=== PATIENT | male | born 1985 | race Caucasian/White ===

== ENCOUNTER 2016-08-03 21:49 | Emergency (ER) | payer BC, OTHER ==
[~2016-08-03] VITALS: Ht 167.6 cm; Wt 71.4 kg
[~2016-08-03 21:49] MED LIST: CEPH500C PO
[2016-08-03 21:51] VITALS: Ht 167.6 cm; Wt 71.4 kg
[2016-08-03] MEDS ORDERED: ACETAMINOPHEN 500 MG TAB PO STA (22:02)
[2016-08-03 22:46] VITALS: BP 102/67; PULSE 100; TEMP 37.6; O2SAT 97
[2016-08-04 02:02] LABS: INFLUENZA B PCR Neg for Influ B (NEG)
[2016-08-04 02:04] LABS: INFLUENZA A PCR POS for Influ A (NEG)
--- NOTE | 2016-08-04 02:36 | EMERGENCY ROOM VISIT NOTE ---
History First contact with patient: 21:54 Chief Complaint: FEVER Stated Complaint: FEVER History of Present Illness The patient is a 31 year old male who presents to the Emergency Room with complaints of fever, chills, occasional cough bodyaches and pains for the past day. Patient didn't receive the flu vaccine. Other people myself later currently sick. Patient works at [employer] and has been around other people that have been sick. Patient denies chest pain, dyspnea, neck status, sore throat, earache, abdominal pain, vomiting, diarrhea. He is tolerate by mouth fluids and food. He took Motrin 40 mg at 9 PM. Review of Systems See HPI for pertinent positives & negatives. A total of 10 systems reviewed and were otherwise negative. Past Medical/Surgical History None Social History Smoking Status: Never Smoker Smokeless Tobacco Use: No Drug Use: none Housing Status: lives with family Occupation Status: employed Current/Historical Medications No Active Prescriptions or Reported Meds Allergies Coded Allergies: Penicillins (Unverified Allergy, Unknown, UNKNOWN, 08/03/16) Physical Exam Vital Signs Date Time Temp Pulse Resp B/P Pulse Ox O2 Delivery O2 Flow Rate FiO2 08/03/16 22:46 37.6 100 16 102/67 97 08/03/16 21:51 37.9 118 16 135/80 94 Room Air Physical Exam VITALS: Vitals are noted on the nurse's note and reviewed by myself. Vital signs febrile tachycardic GENERAL: Pleasant male mildly ill-appearing, in no acute distress, nondiaphoretic, well-developed well-nourished. SKIN: The skin was without rashes, erythema, edema, or bruising. There is no tenting of the skin. Capillary reflex less than 2 seconds. HEAD: Normocephalic atraumatic. EARS: External auditory canals clear, tympanic membranes pearly daily without erythema or effusion bilaterally. EYES: Pupils equal round and reactive to light and accommodation. Conjunctivae without injection, sclerae without icterus. Extraocular movements intact. NOSE: Patent, turbinates without inflammation or discharge. No sinus tenderness. MOUTH: Mucous membranes mildly dry. Pharynx without erythema or exudate. Uvula midline. Airway patent. Tongue does not deviate. NECK: Supple without nuchal rigidity. No lymphadenopathy. No thyromegaly. Cervical spine is nontender. No JVD. No meningeal signs HEART: Regular rate and rhythm without murmurs gallops or rubs. LUNGS: Clear to auscultation bilaterally without wheezes, rales or rhonchi. No dullness to percussion. No retractions or accessory muscle use. ABDOMEN: Positive bowel sounds x 4. Normal tympanic percussion. Soft, nontender, without masses or organomegaly. Sy sign negative. No guarding or rebound tenderness. MUSCULOSKELETAL: No muscle atrophy, erythema, or edema noted. NEURO: Patient was alert and oriented to person place and time. Normal sensation to light and sharp touch. No focal neurological deficits. Medical Decision & Procedures Laboratory Results Test 08/03/16 21:55 Influenza Type A (RT-PCR) POS for Influ A (NEG) Influenza Type A Antigen Neg for Influ A (NEG) Influenza Type B Antigen Neg for Influ B (NEG) Influenza Type B (RT-PCR) Neg for Influ B (NEG) Medications Administered Medications (Trade) Dose Ordered Sig/Traci Route Start Time Stop Time Status Last Admin Dose Admin Acetaminophen (Tylenol Tab) 1,000 mg NOW STAT PO 08/03/16 22:02 08/03/16 22:04 DC 08/03/16 22:27 1,000 MG ED Course Prior records/ancillary studies reviewed. Triage Nursing notes reviewed. Additional history obtained from family The patient's history was concerning for fever. Differential diagnosis: Etiologies such as viral syndrome, otitis, pharyngitis, pneumonia, influenza, meningitis, urinary tract infection, sepsis, bacteremia, as well as others were entertained. Physical examination: Patient is alert, interactive and tolerating fluids ER treatment provided: Tylenol, Gatorade On reassessment the patient felt better. Diagnostics interpreted by me: The labs revealed + flu This appears to be consistent with influenza. Patient is neurovascularly and neurologically intact. No signs of meningitis. He was informed that he is highly contagious and to stay at home until he is 24 hours fever free. He was advised to wear his mask at home as he has young children at home. He was advised to rest, stay well hydrated and to take Tylenol and/or Motrin as needed for fever reduction. He was advised follow-up family care in a few days or here in the ER sooner for high fevers, lethargy, next of this, worsening signs or symptoms or as needed. By the evaluation outlined above emergent etiologies such as otitis, pharyngitis, pneumonia, meningitis, urinary tract infection, sepsis, bacteremia, as well as others were deemed relatively unlikely. The pt informed about the findings as listed above. All questions were answered and pleased with the treatment. Return instructions were outlined and the patient was discharged in stable condition. Referral: The patient was referred back to their primary care physician for follow-up in 2 to 3 days for a recheck of the current condition. Medical Decision As above Impression Primary Impression: Influenza A Additional Impression: Fever Departure Information Dispostion Home / Self-Care Condition GOOD Prescriptions No Active Prescriptions or Reported Meds Referrals Sahil Ledesma M.D. (PCP) Patient Instructions My [facility] Additional Instructions Acetaminophen(Tylenol) may be used for fever or pain. Use 1000mg every six hours as needed. Avoid using more than 3000mg in a 24 hour period. (AND/OR) Ibuprofen(Motrin, Advil) may be used for fever or pain. Use 600mg every six hours as needed. Take with food. Avoid using more than 2400mg in a 24 hour period. Do not use 2400mg per day for more than three consecutive days without physician direction. Prolonged inappropriate use can lead to stomach upset or ulcers. Afrin nasal spray: 2-3 sprays to each nostril twice daily as needed for congestion. Do not use for more than 3-4 days because it can lead to worsening rebound congestion. Pseudoephedrine(Sudaphed): 30-60mg every 6 hours as needed for nasal congestion. Do not take this with other stimulant products or supplements. Rest and drink plenty of fluids. Controlling your fever with Tylenol and Ibuprofen as above will make you feel better. Wash your hands after nose blowing, sneezing, or coughing. Most germs are spread through contact, therefore improper hygiene may result in your close contacts and loved ones becoming ill just like you. Continue current medications. Return to the ER for severe headache, neck stiffness, chest pain, difficulty breathing, fevers, vomiting, worsening of your condition, or as needed. Follow up with your primary physician this week for a recheck of your current condition. Problem Qualifiers
== END 2016-08-03 23:14 | disposition home or self-care (01) ==
LOC: C.EDB 21:50
DX: J09.X2 Influenza due to identified novel influenza A virus with other respiratory manifestations (principal)

== ENCOUNTER → 2016-12-20 | Outpatient (CLI) | payer OTHER, BC ==
--- NOTE | 2016-12-20 13:34 | DIAGNOSTIC IMAGING REPORT ---
FACIAL BONES MIN 3 VIEWS RTN CLINICAL HISTORY: Facial pain status post trauma COMPARISON STUDY: CT scan dated 05/12/2010 FINDINGS: There is no orbital emphysema. No air-fluid levels are visualized. No fractures are visualized on conventional radiographic imaging. IMPRESSION: No facial fractures identified on conventional radiographic imaging Electronically signed by: Elías Ma M.D. 12/20/2016 1:32 PM Dictated Date/Time: 12/20/2016 1:31 PM
--- NOTE | 2016-12-22 12:57 | CODING QUERY NO DIAGNOSIS ---
TREATMENT RENDERED WITHOUT A DIAGNOSIS To promote full compliance with coding requirements relating to patient care, physician participation is requested in all cases of grooming salon manager uncertainty. Please assist us with providing a diagnosis/symptom for the test(s) below: A diagnosis/symptom was not documented on your Order. A valid diagnosis/symptom is required to bill all insurances. Please remember that we are unable to code a diagnosis of rule out, probable, possible, questionable, or suspected. DATE OF SERVICE: 12/20/16 Tests that require a diagnosis: * FACIAL X-RAYS DIAGNOSIS: Provider Signature: Date: [facility] you [facility] Information Management Once completed, please kindly fax back to [phone] For questions please call [phone]
== END | disposition home or self-care (01) ==
LOC: C.RAD1850 13:17
PROVIDERS: ATTEND Emergency Medicine
DX: R51 Headache (principal)

== ENCOUNTER 2018-09-24 15:11 | Observation (INO) ==
--- OUTSIDE RECORDS SUMMARY | 2018-09-24 15:13 | External Medical Summary | Continuity of Care Document ---
:1985 Author Name Liliana Stevens Address Unavailable Unavailable , Care Team Providers Name Role Phone Unavailable Unavailable Unavailable Josesito SAMAYOA Unavailable [email or web address] Rozina CAVAZOS Unavailable Unavailable Unavailable Unavailable Unavailable Problems Acute bronchitis (466.0) (J20.9) Acute maxillary sinusitis (461.0) (J01.00) Acute otitis media (382.9) (H66.90) Cough (786.2) (R05) Allergies and Adverse Reactions Penicillins (Allergy) Medications Doxycycline Monohydrate 100 MG Oral Capsule; TAKE 1 CA PSULE TWICE DAILY. YAO Cavazos Start: 06-Aug-2016 Quantity: 14 Refills: 0 Fluticasone Propionate 50 MCG/ACT Nasal Suspension; 1 spray each nostril twice daily YAO Cavazos Start: 06-Aug-2016 Quantity: 1 16 GM Bottle Refills: 1 Procedures Procedures not documented Immunizations Immunizations not documented Plan of Treatment Planned Observations Planned Goals not documented Results No Known Results Results not documented
[2018-09-24] MEDS ORDERED: MoRPHine SULFATE 4 MG/ML 1 ML CARP\\VIAL IV STA (15:23)
[2018-09-24] MEDS ORDERED: ONDANSETRON INJ 2 MG/ML 2 ML VIAL IV STA (15:23)
[2018-09-24] MEDS ORDERED: KETOROLAC TROMETHAMINE 15 MG/ML VIAL IV STA (15:23)
[2018-09-24 15:30] LABS: Basophils # (auto) 0.03 K/uL (0-0.2); Basophils % (auto) 0.3 %; Eosinophils # (auto) 0.06 K/uL (0-0.5); Eosinophils % (auto) 0.5 %; Hematocrit (blood only) 46.4 % (42-52); Hemoglobin 17.4 g/dL (14.0-18.0); Immature Granulocytes # (auto) 0.02 K/uL (0.00-0.02); Immature Granulocytes % (auto) 0.2 %; Lymphocytes # (auto) 2.17 K/uL (1.2-3.4); Lymphocytes % (auto) 18.9 %; Mean Corpuscular Hgb Conc 37.5 g/dL (32-36); Mean Platelet Volume 9.5 fL (7.4-10.4); Monocytes # (auto) 0.45 K/uL (0.11-0.59); Monocytes % (auto) 3.9 %; Neutrophils # (auto) 8.73 K/uL (1.4-6.5); Neutrophils % (auto) 76.2 %; Platelet Count 297 K/uL (130-400); RDW Standard Deviation 37.7 fL (36.4-46.3); White Blood Count 11.46 K/uL (4.8-10.8)
[2018-09-24] MEDS ORDERED: SODIUM CHLORIDE 0.9% 1000ML 1,000 ML IV SCH (15:30)
[2018-09-24 15:47] LABS: Albumin Level 4.4 gm/dl (3.4-5.0); BUN Creatinine Ratio 18.5 (10-20); Calcium 9.5 mg/dl (8.5-10.1); Creatinine Clr Calc Pharmacy 117.7 ml/min; Est GFR (African American) 132.7; Est GFR (Non-African American) 114.5; Potassium 3.6 mmol/L (3.5-5.1)
[2018-09-24 15:50] LABS: Albumin Globulin Ratio 1.2 (0.9-2); Bilirubin,Total 0.7 mg/dl (0.2-1); Globulin 3.6 gm/dl (2.5-4.0)
[2018-09-24] MEDS ORDERED: HYDROmorphone INJ 0.5 MG/0.5 ML SYR IV PRN (15:55)
--- NOTE | 2018-09-24 16:00 | Emergency Department Note ---
Entered by Iker James acting as a scribe for Iker Colon MD History of Present Illness General Chief complaint: Abdominal Pain Stated complaint: SEVERE ABDOMINAL PAIN Time Seen by Provider: 09/24/18 15:16 Source: patient History of Present Illness Provider complaint: Abd pain Onset (ago): hour(s) 5 Location: abdomen Radiation: other (testicles) Severity: severe Maximum Pain Intensity: 9 Current Pain Intensity: 9 Quality: + constant Associated symptoms: + denies other symptoms (back pain, blood in urine, and di arrhea) and + nausea/vomiting; no fever/chills The patient is a 33 year old male who presents to the Emergency Room with complaints of abdominal pain that began approximately 5 hours ago. The patient states that he has severe abdominal discomfort that is throughout his whole abdomen, but notes that the pain seems to favor the left side. He rates his pain as a 9/10. He notes he has never had pain like this before. The patient also complains of nausea/vomiting and some testicular discomfort. The patient states that the pain does not radiate to his back. He denies taking anything at home for the pain. The patient denies back pain, blood in urine, fever, and diarrhea. He also denies any recent trauma. The patient also denies a history of kidney stones. Home Medications Home Medications Medication Instructions Recorded Confirmed Type fexofenadine 180 mg PO DAILY 09/24/18 09/24/18 History Allergies Allergy/AdvReac Type Severity Reaction Status Date / Time Penicillins Allergy Unknown UNKNOWN Unverified 09/24/18 16:12 Past Med/Surg History Medical History Acute appendicitis (Acute) Vomiting (Acute) No pertinent past medical history Surgical History H/O decompression of ulnar nerve History of wisdom tooth extraction Social History Preferred Language: [place] Islander Communication Ability: Effective Beliefs That Will Affect Care: None Current Living Situation: Spouse Other Information That Helps Us Care for You: No Feels Safe at Home: Yes Safety Concerns: Feels Safe At This Time Smoking Status: Never smoker Do You Dip or Chew Tobacco: No Hx Alcohol Use: Yes Alcohol type: beer Hx Substance Use: No Review of Systems See HPI for pertinent positives & negatives. and A total of 10 systems reviewed and were otherwise negative Physical Exam Vital Signs Vital Signs - 24 hr 09/24/18 15:12 09/24/18 15:38 09/24/18 17:09 Temperature 36.5 C Temperature Source Oral Sepsis Recent Fever Within 48 Hours No Sepsis New/Unexplained Change in Mental Status No Sepsis Action Taken by Nursing No Action Required Pulse Rate 66 Pulse Rate [Apical] Pulse Rate [Left Finger] Pulse Rate [Right Finger] 60 Pulse Rhythm [Apical] Respiratory Rate 16 13 Respiratory Effort / Characteristics Non-Labored Spontaneous Non-Labored Respiratory Depth Normal Normal Respiratory Pattern Blood Pressure 162/93 H Blood Pressure [Left Arm] 133/74 Blood Pressure Mean 116 Blood Pressure Mean [Left Arm] 93 Blood Pressure Position Sitting Blood Pressure Position [Left Arm] Pulse Oximetry 99 100 100 Oxygen Delivery Method Room Air Room Air Room Air Oxygen Flow Rate 09/24/18 17:51 09/24/18 20:44 09/24/18 20:50 Temperature 36.0 C L Temperature Source Temporal Artery Scan Sepsis Recent Fever Within 48 Hours Sepsis New/Unexplained Change in Mental Status Sepsis Action Taken by Nursing Pulse Rate Pulse Rate [Apical] 92 H 82 Pulse Rate [Left Finger] Pulse Rate [Right Finger] 73 Pulse Rhythm [Apical] Regular Regular Respiratory Rate 19 12 16 Respiratory Effort / Characteristics Non-Labored Non-Labored Non-Labored Respiratory Depth Normal Normal Normal Respiratory Pattern Regular Regular Blood Pressure Blood Pressure [Left Arm] 115/75 128/69 125/72 Blood Pressure Mean Blood Pressure Mean [Left Arm] 88 88 89 Blood Pressure Position Blood Pressure Position [Left Arm] Lying Lying Pulse Oximetry 100 99 100 Oxygen Delivery Method Room Air Oxymask Oxymask Oxygen Flow Rate 5 3 09/24/18 21:00 09/24/18 21:10 09/24/18 21:20 Temperature 36.4 C L Temperature Source Temporal Artery Scan Sepsis Recent Fever Within 48 Hours Sepsis New/Unexplained Change in Mental Status Sepsis Action Taken by Nursing Pulse Rate Pulse Rate [Apical] 88 88 81 Pulse Rate [Left Finger] Pulse Rate [Right Finger] Pulse Rhythm [Apical] Regular Regular Regular Respiratory Rate 16 16 18 Respiratory Effort / Characteristics Non-Labored Non-Labored Non-Labored Respiratory Depth Normal Normal Normal Respiratory Pattern Regular Regular Regular Blood Pressure Blood Pressure [Left Arm] 136/78 133/73 136/76 Blood Pressure Mean Blood Pressure Mean [Left Arm] 97 93 96 Blood Pressure Position Blood Pressure Position [Left Arm] Lying Lying Lying Pulse Oximetry 98 96 96 Oxygen Delivery Method Room Air Room Air Room Air Oxygen Flow Rate 09/24/18 21:30 09/24/18 22:00 09/24/18 22:28 Temperature 36.6 C 36.6 C 36.4 C L Temperature Source Oral Oral Oral Sepsis Recent Fever Within 48 Hours Sepsis New/Unexplained Change in Mental Status Sepsis Action Taken by Nursing Pulse Rate Pulse Rate [Apical] Pulse Rate [Left Finger] 66 67 88 Pulse Rate [Right Finger] Pulse Rhythm [Apical] Respiratory Rate 15 16 16 Respiratory Effort / Characteristics Non-Labored Non-Labored Respiratory Depth Normal Normal Normal Respiratory Pattern Regular Regular Blood Pressure Blood Pressure [Left Arm] 133/70 118/74 111/66 Blood Pressure Mean Blood Pressure Mean [Left Arm] 91 88 81 Blood Pressure Position Blood Pressure Position [Left Arm] Lying Sitting Lying Pulse Oximetry 93 96 96 Oxygen Delivery Method Room Air Room Air Room Air Oxygen Flow Rate GENERAL: Moderate distress from pain HEENT: No acute trauma, normocephalic atraumatic, mucous membranes moist, no nasal congestion, no scleral icterus. NECK: No stridor, no adenopathy, no meningismus, trachea is midline. LUNGS: Clear to auscultation bilaterally, no wheeze, no rhonchi, breath sounds equal. HEART: Without murmurs gallops or rubs, regular rate and rhythm. ABDOMEN: Soft, tender to the RLQ and LUQ, bowel sounds positive, no hernias, no peritonitis. BACK: Tender to the left flank with percussion. EXTREMITIES: No cyanosis or edema, full range of motion of all the joints without pain or difficulty, no signs for acute trauma. NEUROLOGIC: Oriented x 3, no acute motor or sensory deficits, no focal weakness. SKIN: No rash, no jaundice, no diaphoresis. Course 1518: The patient was evaluated in room A10. A complete history and physical exam was performed. 1701: I reviewed the patinet's case with Dr. La-Surgery. The patient will be hospitalized. Administered Medications Hydromorphone HCl (Dilaudid) 0.5 mg IV Q15M PRN PRN Reason: Pain Stop: 10/08/18 15:54 Last Admin: 09/24/18 16:00 Dose: 0.5 mg Documented by: [id number] Levofloxacin/Dextrose (Levaquin/D5w) 500 mg in 100 mls @ 100 mls/hr IV Q24H [facility]; Protocol Stop: 09/25/18 21:59 Last Admin: 09/24/18 22:37 Dose: 100 mls/hr Documented by: [id number] Morphine Sulfate (Morphine Sulfate) 1 mg IV Q3H PRN PRN Reason: MILD Pain (Scale 1,2,3) Stop: 10/08/18 21:47 Last Admin: 09/24/18 22:37 Dose: 1 mg Documented by: [id number] Ondansetron HCl (Zofran) 4 mg IV Q4H PRN PRN Reason: Nausea And Vomiting Stop: 10/24/18 21:47 Last Admin: 09/24/18 22:37 Dose: 4 mg Documented by: [id number] Discontinued Medications Bupivacaine HCl (Marcaine 0.5% Mpf) Confirm Administered Dose 30 ml .ROUTE .STK- MED ONE Stop: 09/24/18 17:52 Last Admin: 09/24/18 18:48 Dose: 30 ml Documented by: [id number] Sodium Chloride (Nss 1000ml) 1,000 mls @ 999 mls/hr IV .Q1H1M [facility] Stop: 09/24/18 16:30 Last Infusion: 09/24/18 16:26 Dose: 0 mls/hr Documented by: [id number] Admin: 09/24/18 15:33 Dose: 999 mls/hr Documented by: [id number] Sodium Chloride (Nss 1000ml) 1,000 mls @ 999 mls/hr IV .Q1H1M ONE Stop: 09/24/18 17:55 Last Admin: 09/24/18 17:28 Dose: 999 mls/hr Documented by: [id number] Ciprofloxacin (Cipro) 400 mg in 200 mls @ 100 mls/hr IV TODAY@1900 [facility] Stop: 09/24/18 20:59 Last Admin: 09/24/18 18:33 Dose: 100 mls/hr Documented by: [id number] Metronidazole (Flagyl) 500 mg in 100 mls @ 100 mls/hr IV TODAY@1830 ONE Stop: 09/24/18 19:29 Last Admin: 09/24/18 18:48 Dose: 100 mls/hr Documented by: [id number] Ketorolac Tromethamine (Toradol) 15 mg IV NOW STA Stop: 09/24/18 15:24 Last Admin: 09/24/18 15:33 Dose: 15 mg Documented by: [id number] Miscellaneous (Surgicel Absorb Hemostat 2in X 14in) 1 ea TOP ONCE ONE Stop: 09/24/18 19:25 Last Admin: 09/24/18 19:24 Dose: 1 ea Documented by: [id number] Miscellaneous (Floseal Hemostatic Matrix 5ml) 5 ml TOP ONCE ONE Stop: 09/24/18 19:41 Last Admin: 09/24/18 19:48 Dose: 5 ml Documented by: [id number] Morphine Sulfate (Morphine Sulfate) 4 mg IV NOW STA Stop: 09/24/18 15:24 Last Admin: 09/24/18 15:33 Dose: 4 mg Documented by: [id number] Ondansetron HCl (Zofran) 4 mg IV NOW STA Stop: 09/24/18 15:24 Last Admin: 09/24/18 15:33 Dose: 4 mg Documented by: [id number] Medical Decision Making Differential Diagnosis Differential Diagnosis: renal colic, hydronephrosis, hernia, UTI, testicular torsion, diverticulitis, appendicitis, pancreatitis Medical Records Attestation: I reviewed the patient's medical records. Home Medications Current Medication List: was personally reviewed by me Laboratory Data Attestation: I reviewed the patient's lab results. Result diagrams: 09/24/18 15:23 09/24/18 15:23 Lab Results 09/24/18 09/24/18 09/24/18 Range/Units 15:23 15:23 16:31 WBC 11.46 H (4.8-10.8) K/uL RBC 5.80 (4.7-6.1) M/uL Hgb 17.4 (14.0-18.0) g/dL Hct 46.4 (42-52) % MCV 80.0 (80-100) fL MCH 30.0 (25-34) pg MCHC 37.5 H (32-36) g/dL RDW Std Deviation 37.7 (36.4-46.3) fL RDW Coeff of Dahlia 13.0 (11.5-14.5) % Plt Count 297 (130-400) K/uL MPV 9.5 (7.4-10.4) fL Immature Gran % (Auto) 0.2 % Neut % (Auto) 76.2 % Lymph % (Auto) 18.9 % Murray % (Auto) 3.9 % Eos % (Auto) 0.5 % Baso % (Auto) 0.3 % Immature Gran # (Auto) 0.02 (0.00-0.02) K/uL Neut # (Auto) 8.73 H (1.4-6.5) K/uL Lymph # (Auto) 2.17 (1.2-3.4) K/uL Murray # (Auto) 0.45 (0.11-0.59) K/uL Eos # (Auto) 0.06 (0-0.5) K/uL Baso # (Auto) 0.03 (0-0.2) K/uL Sodium 139 (136-145) mmol/L Potassium 3.6 (3.5-5.1) mmol/L Chloride 101 (98-107) mmol/L Carbon Dioxide 29 (21-32) mmol/L Anion Gap 8.0 (3-11) BUN 16 (7-18) mg/dl Creatinine 0.88 (0.6-1.4) mg/dl Est Cr Clr Drug Dosing 117.7 ml/min Est GFR ( Amer) 132.7 Est GFR (Non-Af Amer) 114.5 BUN/Creatinine Ratio 18.5 (10-20) Glucose 99 (70-99) mg/dl Calcium 9.5 (8.5-10.1) mg/dl Total Bilirubin 0.7 (0.2-1) mg/dl AST 28 (15-37) U/L ALT 52 (12-78) U/L Alkaline Phosphatase 71 (45-117) U/L Total Protein 8.0 (6.4-8.2) gm/dl Albumin 4.4 (3.4-5.0) gm/dl Globulin 3.6 (2.5-4.0) gm/dl Albumin/Globulin Ratio 1.2 (0.9-2) Lipase 110 (73-393) U/L Urine Color Yellow Urine Appearance Turbid A (Clear) Urine pH 8.5 H (4.5-7.5) Ur Specific [place] 1.027 (1.000-1.030) Urine Protein Negative (Negative) Urine Glucose (UA) Negative (Negative) Urine Ketones 4+ H (Negative) Urine Blood Negative (Negative) Urine Nitrite Negative (Negative) Urine Bilirubin Negative (Negative) Urine Urobilinogen Negative (Negative) Ur Leukocyte Esterase Negative (Negative) Urine WBC (Auto) 0 (0-5) /hpf Urine RBC (Auto) 0-4 (0-4) /hpf U Hyaline Cast (Auto) 1-5 (0-5) /lpf U Epithel Cells (Auto) 0-5 (0-5) /lpf Urine Bacteria (Auto) Negative (Negative) Imaging Data Radiologist's Impression: Radiology results as stated below per my review and the radiologist's interpretation: CT SCAN OF THE ABDOMEN AND PELVIS WITHOUT IV CONTRAST CLINICAL HISTORY: Lower abdominal pain. Vomiting. COMPARISON STUDY: Radiographs of the lumbar spine dated 01/18/2013. TECHNIQUE: CT scan of the abdomen and pelvis is performed from the lung bases to the proximal femora. Images are reviewed in the axial, sagittal, and coronal planes. IV contrast was not administered for this examination as per the referring clinician. Note that the examination is suboptimal without oral and IV contrast. A dose lowering technique was utilized adhering to the principles of ALARA. CT DOSE: 291.50 mGy.cm FINDINGS: Lung bases: The heart is normal in size and without pericardial effusion. The lung bases are clear. Liver: The unenhanced liver is normal in size, contour, and attenuation. There is no intrahepatic biliary ductal dilatation. Gallbladder: Unremarkable. Spleen: Normal in size and attenuation. Pancreas: Unremarkable. Adrenal glands: Unremarkable. Kidneys: The unenhanced kidneys are normal in size and without hydronephrosis. There are no renal calculi identified. There is no evidence of contour deforming renal mass lesion. Abdominal vasculature: The abdominal aorta is normal in course and caliber. Bowel: There is mild colonic fecal retention. No bowel obstruction is seen. The appendix is distended and fluid-filled measuring up to 12 mm in diameter. Appendiceal wall is thickened and there is periappendiceal inflammation. The appearance is consistent with acute appendicitis. There is no evidence of abs cess on this unenhanced series. Peritoneum: There is no intraperitoneal free air or abdominal ascites. Lymphadenopathy: None. Pelvic viscera: The bladder, prostate, and seminal vesicles are normal as visualized. Skeletal structures: No lytic or blastic lesions are seen. IMPRESSION: 1. Findings are consistent with acute appendicitis. 2. No intraperitoneal free air is seen and there is no evidence of abscess on this unenhanced examination. Electronically signed by: Iker Adam M.D. 09/24/2018 4:41 PM Blood Pressure Blood Pressure Findings: Elevated blood pressure Blood Pressure Disposition: Referred to patients primary care provider [facility] Narrative There is a mild leukocytosis at 11,000, this could be consistent with infection or his pain. No concerning anemia. No significant electrolyte abnormality, kidney failure, hepatitis or pancreatitis. Urinalysis suggests some dehydration, no findings of infection. Abdominal and pelvis CT shows evidence for acute appendicitis without rupture. On exam, the patient was tender in the right lower quadrant and the left upper quadrant. He was not febrile. The patient received IV saline, he was eventually given a second bolus of IV saline. He was given IV Zofran, IV morphine, IV Toradol and eventually a small amount of IV Dilaudid. He is more comfortable. On repeat exam, he is now primarily tender in the right lower quadrant only. I spoke with the surgeon on-call. I talked to the patient about his findings, I spoke with case management. Hospitalization and general surgical intervention is required. Impression & Plan Acute appendicitis, Vomiting Discharge Plan Visit Data *Final* Discharge Date/Time: 09/24/18 17:51 Chief Complaint: Abdominal Pain Stated Complaint: SEVERE ABDOMINAL PAIN ED Provider: Iker Colon Discharge Problem: Acute appendicitis, Vomiting Patient Disposition: Admitted As Inpatient Discharge Instructions Interventions: ED Discharge Assessment Last Done: 09/24/18 17:51 Discharge Problem: Acute appendicitis Qualifiers: Appendicitis perforation presence: without perforation The scribe's documentation has been prepared under my direction and personally reviewed by me in its entirety. I confirm that the note above accurately reflects all work, treatment, procedures, and medical decision making performed by me.
--- NOTE | 2018-09-24 16:42 | CT Scan Report ---
CT SCAN OF THE ABDOMEN AND PELVIS WITHOUT IV CONTRAST CLINICAL HISTORY: Lower abdominal pain. Vomiting. COMPARISON STUDY: Radiographs of the lumbar spine dated 01/18/2013. TECHNIQUE: CT scan of the abdomen and pelvis is performed from the lung bases to the proximal femora. Images are reviewed in the axial, sagittal, and coronal planes. IV contrast was not administered for this examination as per the referring clinician. Note that the examination is suboptimal without ora l and IV contrast. A dose lowering technique was utilized adhering to the principles of ALARA. CT DOSE: 291.50 mGy.cm FINDINGS: Lung bases: The heart is normal in size and without pericardial effusion. The lung bases are clear. Liver: The unenhanced liver is normal in size, contour, and attenuation. There is no intrahepatic shanika iary ductal dilatation. Gallbladder: Unremarkable. Spleen: Normal in size and attenuation. Pancreas: Unremarkable. Adrenal glands: Unremarkable. Kidneys: The unenhanced kidneys are normal in size and without hydronephrosis. There are no renal smith culi identified. There is no evidence of contour deforming renal mass lesion. Abdominal vasculature: The abdominal aorta is normal in course and caliber. Bowel: There is mild colonic fecal retention. No bowel obstruction is seen. The appendix is distended and fluid-filled measuring up to 12 mm in diameter. Appendiceal wall is thickened and there is peria ppendiceal inflammation. The appearance is consistent with acute appendicitis. There is no evidence o f abscess on this unenhanced series. Peritoneum: There is no intraperitoneal free air or abdominal ascites. Lymphadenopathy: None. Pelvic viscera: The bladder, prostate, and seminal vesicles are normal as visualized. Skeletal structures: No lytic or blastic lesions are seen. IMPRESSION: 1. Findings are consistent with acute appendicitis. 2. No intraperitoneal free air is seen and there is no evidence of abscess on this unenhanced examina tion. Electronically signed by: Iker Adam M.D. 09/24/2018 4:41 PM
[2018-09-24 16:43] LABS: Appearance Urine Turbid (Clear); Bacteria Urine Automated Negative (Negative); Bilirubin Urine Negative (Negative); Blood Urine Negative (Negative); Color Urine Yellow; Epithelial Cell Urine Auto 0-5 /lpf (0-5); Glucose Urine UA Negative (Negative); Leukocyte Esterase Urine Negative (Negative); Nitrite Urine Negative (Negative); RBC Urine Automated 0-4 /hpf (0-4); Specific Gravity Urine 1.027 (1.000-1.030); Urobilinogen Urine Negative (Negative); WBC Urine Automated 0 /hpf (0-5); pH Urine 8.5 (4.5-7.5)
[2018-09-24 16:45] LABS: Ketones Urine 4+ (Negative); Protein Urine Negative (Negative)
[2018-09-24] MEDS ORDERED: SODIUM CHLORIDE 0.9% 1000ML 1,000 ML IV ONE (16:55)
--- NOTE | 2018-09-24 17:07 | Anesthesiology Consultation ---
Date of Service September 24, 2018 Assessment & Plan (1) Encounter for pre-operative examination: Chart Review Chart Review: Acceptable Risk for Surgery (Emergent) and Patient NOT seen in Pre Admission Testing Consults Requested none ASA [id number] Proposed Anesthesia Anesthesia Type: General Risk / Benefits Reviewed With: PT / POA / Parent / Guardian, Accepts Plan and Informed Consent Obtained Additional Comments: Discussed with patient r/b of GETA including risk of aspiration due to h/o n/v with the abdominal pain. All questions were answered. Pt accepting of risks and willing to proceed. Consent was signed and witnessed. History Surgery Operation Date: 09/24/18 18:00 Proposed Procedures p Laparoscopic Appendectomy - Carolina La MD Height/Weight Height: 1.73 m Weight: 68.9 kg Allergies Allergy/AdvReac Type Severity Reaction Status Date / Time Penicillins Allergy Unknown UNKNOWN Unverified 09/24/18 16:12 Medications Home Medications Medication Instructions Recorded Confirmed Last Taken fexofenadine 180 mg PO DAILY 09/24/18 09/24/18 Unknown Active Medications Generic Name Dose Route Start Last Admin Trade Name Freq PRN Reason Stop Dose Admin Hydromorphone HCl 0.5 mg 09/24/18 15:55 09/24/18 16:00 Dilaudid IV 10/08/18 15:54 0.5 mg Q15M PRN Administration Pain NPO Date Last Intake of Fluids: 09/24/18 Time Last Intake of Fluids: 10:30 Date Last Intake of Solids: 09/24/18 Time Last Intake of Solids: 09:00 Past Medical History Medical History Acute appendicitis (Acute) Vomiting (Acute) No pertinent past medical history Seasonal allergy Exercise / Class Metabolic Activity 1 > 8 Run/Swim/Ski/Tennis (Active, works as a wheatley) Past Surgical History Surgical History H/O decompression of ulnar nerve History of wisdom tooth extraction Past Anesthesia History No Hx of Anesthesia Complications and No Family Hx of Anesthesia Complications History of PONV No Hx of PONV and No Hx of Motion Sickness Social History Smoking Status: Never smoker Do You Dip or Chew Tobacco: No Hx Alcohol Use: Yes Alcohol type: beer and wine alcohol intake frequency: a few times a month Hx Substance Use: No Review of Systems Respiratory: no dyspnea Cardiovascular: no chest pain Gastrointestinal: + nausea and + vomiting (X 2 at home. None since in the hospital) Physical Exam Vital Signs Last Vital Signs Temp 36.5 C 09/24/18 15:12 Pulse 73 09/24/18 17:51 Resp 19 09/24/18 17:51 BP 115/75 09/24/18 17:51 Pulse Ox 100 09/24/18 17:51 ENMT Mouth: no TMJ abnormality and no TMJ clicking Thyromental Distance: > or= 3.5 Finger Breadths Mallampati Class: II Neck normal visual inspection; neck extension not limited Respiratory normal respiratory effort Auscultation: lungs clear to auscultation bilaterally Cardiovascular Rate/Rhythm: regular rate and regular rhythm Psychiatric Orientation: alert and oriented x 3 Testing Electrocardiogram Date: 10/08/15 Findings: + NSR @ (72 bpm) NSR Early repolarization Normal ECG Laboratory Results 09/24/18 15:23 09/24/18 15:23 Urine Color Yellow 09/24/18 16:31 Urine Appearance Turbid (Clear) A 09/24/18 16:31 Urine pH 8.5 (4.5-7.5) H 09/24/18 16:31 Ur Specific [place] 1.027 (1.000-1.030) 09/24/18 16:31 Urine Protein Negative (Negative) 09/24/18 16:31 Urine Glucose (UA) Negative (Negative) 09/24/18 16:31 Urine Ketones 4+ (Negative) H 09/24/18 16:31 Urine Nitrite Negative (Negative) 09/24/18 16:31 Ur Leukocyte Esterase Negative (Negative) 09/24/18 16:31 Urine WBC (Auto) 0 /hpf (0-5) 09/24/18 16:31 Urine RBC (Auto) 0-4 /hpf (0-4) 09/24/18 16:31 U Hyaline Cast (Auto) 1-5 /lpf (0-5) 09/24/18 16:31 U Epithel Cells (Auto) 0-5 /lpf (0-5) 09/24/18 16:31 Urine Bacteria (Auto) Negative (Negative) 09/24/18 16:31
[2018-09-24] MEDS ORDERED: fentaNYL citrate 100 MCG/2 ML VIAL ONE ×2 (17:11→19:05)
[2018-09-24] MEDS ORDERED: MIDAZOLAM HCL 1 MG/ML 2ML VIAL ONE (17:11)
[2018-09-24] MEDS ORDERED: PROPOFOL IV EMULSION 10 MG/ML 20 ML VIAL IV ONE (17:13)
[2018-09-24] MEDS ORDERED: LIDOCAINE HCL 2% 2 ML VIAL/AMP(20MG/ML) INFIL ONE ×2 (17:13→18:45)
[2018-09-24] MEDS ORDERED: ROCURONIUM BROMIDE 10 MG/ML 5 ML VIAL ONE (17:13)
[2018-09-24] MEDS ORDERED: fentaNYL citrate 100 MCG/2 ML VIAL IV PRN (17:23)
[2018-09-24] MEDS ORDERED: HYDROmorphone INJ 1 MG/ML SYRINGE IV PRN (17:23)
[2018-09-24] MEDS ORDERED: ATROPINE SULFATE 0.1 MG/ML 10ML SYR IV PRN (17:23)
[2018-09-24] MEDS ORDERED: ePHEDrine sulfate 50 MG/ML AMP IV PRN (17:23)
[2018-09-24] MEDS ORDERED: ONDANSETRON INJ 2 MG/ML 2 ML VIAL IV PRN ×2 (17:23→21:48)
[2018-09-24] MEDS ORDERED: PROMETHAZINE HCL 12.5 MG in SODIUM CHLORIDE 0.9% 50 ML IV PRN (17:23)
[2018-09-24] MEDS ORDERED: PHENYLEPHRINE 100MCG/ML 5ML SYR IV PRN (17:23)
[2018-09-24] MEDS ORDERED: BUPIVACAINE 0.5 % 5 MG/1 ML MPF 30ML VIAL ONE (17:51)
--- NOTE | 2018-09-24 18:07 | History & Physical Report ---
Date of Service September 24, 2018 Assessment & Plan (1) H/O decompression of ulnar nerve: (2) History of wisdom tooth extraction: (3) Acute appendicitis: Discussed lap appendectomy with risks of bleeding, infection, conversion to open, postop ileus/ abscess, neg appy. Consent signed. For OR today. Present on Admission?: Yes History of Present Illness Chief Complaint: abdominal pain Primary Care Provider: YAO Saleem 33 yr old man who presented to ER with abdominal pain of about 5 hours d uration. Started on left mid abdomen and then radiated over to right side. Simms as though a fist was squeezing, 8-9 /10 in intensity, not worse with movement, associated with nausea and vomiting. No fever or chills. No similar episodes. Slightly better with the pain meds. Did not radiate to back. CT scan showed appendicitis. Allergies Allergy/AdvReac Type Severity Reaction Status Date / Time Penicillins Allergy Unknown UNKNOWN Unverified 09/24/18 16:12 Home Medications Home Medications Medication Instructions Recorded Confirmed Type fexofenadine 180 mg PO DAILY 09/24/18 09/24/18 History Past Med/Surg History Medical History History of wisdom tooth extraction No pertinent past medical history Surgical History H/O decompression of ulnar nerve Social History Preferred Language: Guamanian Feels Safe at Home: Yes Smoking Status: Never smoker Review of Systems Review of Systems: All systems reviewed & are unremarkable except as noted in HPI & below Physical Exam Constitutional: WD/WN, vitals as above Eyes: PERRL, conjunctivae normal, anicteric sclerae ENMT: external ear and nose normal, oropharynx normal Respiratory: normal respiratory effort, lungs clear to auscultation Cardiovascular: RRR, no murmur, no edema Gastrointestinal (Abdomen): Inspection/Auscultation: normal bowel sounds; abdomen not distended Percussion/Palpation: + abdomen tender (in right lower quadrant) and abdomen soft; no guarding Musculoskeletal: no cyanosis or clubbing, extremities motor strength 5/5 Neurologic: moves all extremities; no focal motor deficits Psychiatric: A+Ox3, euthymic affect Results & Data Vital Signs (Past 12 Hours) Vital Signs Temp Pulse Pulse Resp BP BP Pulse Ox 09/24/18 17:51 73 19 115/75 100 09/24/18 17:09 60 13 133/74 100 09/24/18 15:38 100 09/24/18 15:12 36.5 C 66 16 162/93 H [address] 11[address] scan abd/ pelvis (non contrast) FINDINGS: Lung bases: The heart is normal in size and without pericardial effusion. The lung bases are clear. Liver: The unenhanced liver is normal in size, contour, and attenuation. There is no intrahepatic biliary ductal dilatation. Gallbladder: Unremarkable. Spleen: Normal in size and attenuation. Pancreas: Unremarkable. Adrenal glands: Unremarkable. Kidneys: The unenhanced kidneys are normal in size and without hydronephrosis. There are no renal calculi identified. There is no evidence of contour deforming renal mass lesion. Abdominal vasculature: The abdominal aorta is normal in course and caliber. Bowel: There is mild colonic fecal retention. No bowel obstruction is seen. The appendix is distended and fluid-filled measuring up to 12 mm in diameter. Appendiceal wall is thickened and there is periappendiceal inflammation. The appearance is consistent with acute appendicitis. There is no evidence of abscess on this unenhanced series. Peritoneum: There is no intraperitoneal free air or abdominal ascites. Lymphadenopathy: None. Pelvic viscera: The bladder, prostate, and seminal vesicles are normal as visualized. Skeletal structures: No lytic or blastic lesions are seen. IMPRESSION: 1. Findings are consistent with acute appendicitis. 2. No intraperitoneal free air is seen and there is no evidence of abscess on this unenhanced examination. (1) Acute appendicitis Appendicitis perforation presence: without perforation
[2018-09-24] MEDS ORDERED: metroNIDAZOLE 500 MG/100 ML BAG IV ONE (18:30)
[2018-09-24] MEDS ORDERED: ONDANSETRON INJ 2 MG/ML 2 ML VIAL ONE (18:45)
[2018-09-24] MEDS ORDERED: DEXAMETHASONE SOD INJ 4 MG/ML VIAL ONE (18:45)
[2018-09-24] MEDS ORDERED: GLYCOPYRROLATE 0.2 MG/ML VIAL ONE (18:51)
[2018-09-24] MEDS ORDERED: NEOSTIGMINE METHYLSULFATE 5 MG/5 ML SYR ONE ×2 (18:51)
[2018-09-24] MEDS ORDERED: CIPROFLOXACIN 400 MG/200 ML BAG IV SCH (19:00)
[2018-09-24] MEDS ORDERED: SURGICEL ABSORB HEMOSTAT 2IN X 14IN TOP ONE (19:24)
[2018-09-24] MEDS ORDERED: FLOSEAL HEMOSTATIC MATRIX 5ML TOP ONE (19:40)
--- NOTE | 2018-09-24 20:03 | Operative Report ---
Post Operative Report Pre & Post Diagnosis Operation Date: 09/24/18 18:00 Pre-Op Diagnosis: Acute Appendicitis Post-Op Diagnosis: Acute Appendicitis Procedure Operation Date: 09/24/18 18:00 Actual Procedures p Laparoscopic Appendectomy(Not Applicable) - Carolina La MD Surgeon Carolina La MD [employer] none Estimated Blood Loss 20 Findings See Below (long redundant cecum extending into pelvis, appendix located in pelvis with adhesions to right lateral side wall) Specimens appendix Description of Procedure see operative note I attest to the content of the Intraoperative Record and any orders documented therein. Any exceptions are noted below.
--- NOTE | 2018-09-24 21:16 | Anesthesiology Progress Note ---
Date of Service September 24, 2018 Anesthesia Post Procedure Vital Signs Vital Signs: Temp Pulse Pulse Pulse Resp BP BP 09/24/18 21:10 36.4 C L 88 16 133/73 09/24/18 21:00 88 16 136/78 09/24/18 20:50 82 16 125/72 09/24/18 20:44 36.0 C L 92 H 12 128/69 09/24/18 17:51 73 19 115/75 09/24/18 17:09 60 13 133/74 09/24/18 15:38 09/24/18 15:12 36.5 C 66 16 162/93 H Pulse Ox 09/24/18 21:10 96 09/24/18 21:00 98 09/24/18 20:50 100 09/24/18 20:44 99 09/24/18 17:51 100 09/24/18 17:09 100 09/24/18 15:38 100 09/24/18 15:12 99 Pain Intensity Abdomen: Pain Intensity: 2 Transfer of Care Handoff Completed per policy Notes Mental Status: alert / awake / arousable and participated in evaluation Patient Amnestic to Procedure: Yes Nausea / Vomiting: adequately controlled Pain: adequately controlled Airway Patency, RR, SpO2: stable & adequate BP & HR: stable & adequate Hydration State: stable & adequate Anesthetic Complications: no major complications apparent and Pt Satisfied with anesthetic care
[2018-09-24] MEDS ORDERED: MoRPHine SULFATE 4 MG/ML 1 ML CARP\\VIAL IV PRN (21:48)
[2018-09-24] MEDS ORDERED: ACETAMINOPHEN 325 MG TAB PO PRN (21:48)
[2018-09-24] MEDS ORDERED: MoRPHine SULFATE 2 MG/ML CARP IV PRN (21:48)
[2018-09-24] MEDS ORDERED: OXYCODONE/ACETAMINOPHEN 5mg/325mg TAB PO PRN ×2 (21:48)
[2018-09-24] MEDS ORDERED: LEVOFLOXACIN/D5W 500 MG/100 ML BAG IV SCH (22:00)
[2018-09-24] MEDS: MoRPHine SULFATE 2 MG/ML CARP IV PRN (22:37)
--- NOTE | 2018-09-24 23:55 | Anesthesiology Progress Note ---
Date of Service September 24, 2018 Assessment & Plan (1) Uvular swelling: At this point, patient is in no acute distress. He has no problems ventilating and only was concerned because of the sensation of something stuck in the back of his throat. His uvula is swollen and his tonsil has an abrasion but there is no active bleeding and the swelling at this point is mild. He was counseled extensively that this was likely as a result of compression of the uvula by either the endotracheal tube or the OG tube. He was already given decadron during the procedure so this will help with the swelling. I also advised him to use ice chips to help sooth the throat discomfort. I placed him on continuous pulse oximetry to ensure that any airway problems would be identified if he had any type of desaturation. Patients family members were present and are likely going to stay with the patient overnight. I also examined the patient with the nurse so she is able to monitor the size of the uvula and alert myself or the primary surgical team if this condition worsens. Our service will follow-up with the patient tomorrow as well and I answered all questions prior to leaving the room. I also have a page out to the primary surgical team to update them on this patients condition. Patient was also made aware to look for any ulcerations of the uvula moving forward as well as uvular necrosis (white tissue at the end of the uvula). I also stated if he continued to have concerns there is always an option to consult the ENT service for further guidance. Present on Admission?: No Subjective Called by nursing as patient had sore throat and feeling of something stuck when eating ice cream this evening post surgery. When I spoke with the patient, he noticed that when he first attempted to eat post surgery this evening he felt like something was stuck in the back of his throat. He also endorsed some gagging and spit up very scant blood tinged saliva. He denied any shortness of breath, severe pain and is able to recline comfortably. Physical Exam Vital Signs: Last Vital Signs Temp 36.4 C L 09/24/18 22:28 Pulse 88 09/24/18 22:28 Resp 16 09/24/18 22:28 BP 111/66 09/24/18 22:28 Pulse Ox 96 09/24/18 22:28 Physical Exam: Upon examining patient, he was very much alert and oriented and conversant. When opening his mouth wide, I noticed a swollen and irritated uvula with a mild abrasion of his tonsil. While the uvula was swollen it was in no way occluding his posterior pallate or airway. No active bleeding noted. Results & Data Medications Administered Hydromorphone HCl (Dilaudid) 0.5 mg IV Q15M PRN PRN Reason: Pain Stop: 10/08/18 15:54 Last Admin: 09/24/18 16:00 Dose: 0.5 mg Documented by: [id number] Levofloxacin/Dextrose (Levaquin/D5w) 500 mg in 100 mls @ 100 mls/hr IV Q24H [facility]; Protocol Stop: 09/25/18 21:59 Last Admin: 09/24/18 22:37 Dose: 100 mls/hr Documented by: [id number] Morphine Sulfate (Morphine Sulfate) 1 mg IV Q3H PRN PRN Reason: MILD Pain (Scale 1,2,3) Stop: 10/08/18 21:47 Last Admin: 09/24/18 22:37 Dose: 1 mg Documented by: [id number] Ondansetron HCl (Zofran) 4 mg IV Q4H PRN PRN Reason: Nausea And Vomiting Stop: 10/24/18 21:47 Last Admin: 09/24/18 22:37 Dose: 4 mg Documented by: [id number]
[2018-09-25] MEDS: LACTATED RINGER'S 1,000 ML IV SCH ×2 (01:31→13:54)
[2018-09-25] MEDS: MoRPHine SULFATE 2 MG/ML CARP IV PRN ×2 (01:44→07:09)
--- NOTE | 2018-09-25 02:48 | Operative Report ---
DATE OF OPERATION: 09/24/2018 PREOPERATIVE DIAGNOSIS: Acute appendicitis. POSTOPERATIVE DIAGNOSIS: Acute appendicitis. OPERATIVE PROCEDURE: Laparoscopic appendectomy. SURGEON: Dr. Carolina La. PLUMBER PIPE FITTING: None. ESTIMATED BLOOD LOSS: 20 mL IV FLUIDS: 1500 mL URINE OUTPUT: None. SPECIMENS: Appendix. DRAINS: None. ANESTHESIA: General endotracheal anesthesia. OPERATIVE FINDINGS: Redundant cecum extending into pelvis with the appendix located in the pelvis and adhesions of the cecum and appendix to right lateral side wall. Mild bleeding along the right lateral side wall that was controlled with a clip. FloSeal applied to the area. INDICATIONS: Mr. Roman is a 33-year-old man who presented with acute appendicitis on clinical exam with CT confirmation. He was consented regarding laparoscopic appendectomy. PROCEDURE: The patient received ciprofloxacin and Flagyl preoperatively. After the induction of general endotracheal anesthesia, he was placed in sequential compression devices. He had voided just prior to the procedure. His abdomen was clipped and then sterilely prepped and draped. He was positioned in Trendelenburg. A supraumbilical incision was made and the Veress needle was placed into the peritoneal cavity. This was tested with the saline drop test. Pneumoperitoneum was established with initial pressure of 3 mmHg. This was taken up to 15 mmHg. A 12 mm trocar was placed. Two additional trocars were placed under direct vision, a 5 in the left lower quadrant and a 5 mm in the midline pubic area. Initial inspection of the area where the appendix should be revealed the cecum extending into a more redundant appearing cecum that was adhesed to the lateral side wall. This was followed down and appeared to be extending into the pelvis; however, it was difficult to tell whether this was cecum or sigmoid colon. Thus the adhesions of the cecum to the lateral sidewall were taken down. This allowed the cecum to be visualized in its entirety and as it was followed, it was clear that it was extending into the pelvis and the appendix was then visualized along the very base of the pelvis. The appendix was noted to be acutely dilated. There was no perforation. The appendix did have some adhesions of its own to the right pelvic side wall which were taken down. The appendix was ultimately grasped and the mesentery divided with firing of the JOVAN enrique load stapler, small attachments of the appendix were carefully peeled away and it was followed down to the base of the cecum. It was divided off the base of the cecum with a firing of the JOVAN purple load stapler. The appendix was placed in an Endobag and removed through the umbilical incision. The abdomen was inspected. There appeared to be a very small amount of oozing from the right lateral side wall where there was a small peritoneal tear. This area was inspected. Initially pressure was held, but this did not control the very slight oozing and that could still be seen. Thus Surgicel was applied. This did appear to help, but after irrigation and again the oozing was noted, thus a clip was applied over the area and then the peritoneal defect closed with clips. This did appear to control the oozing. The camera was withdrawn and the area left for 3 minutes. The camera was then reinserted and the area reinspected, no bleeding was noted. FloSeal was then applied over the area just to ensure that there was adequate hemostasis. For post-procedure the abdomen was again noted to be completely dry of any bleeding. The trocars were then removed and pneumoperitoneum was released. No further bleeding sites were noted. The sites of the trocars had been injected with 30 mL of 0.5% Marcaine with epinephrine. The fascia of the umbilical incision was closed with an 0 Vicryl stitches placed anteriorly. The skin of all 3 incisions closed with running subcuticular 4-0 Vicryl sutures. Steri-Strip sterile and dressings were applied. He was awakened and taken to recovery in stable condition. I attest to the content of the Intraoperative Record and any orders documented therein. Any exception s are noted below.
[2018-09-25 06:19] LABS: Hematocrit (blood only) 41.3 % (42-52); Hemoglobin 15.1 g/dL (14.0-18.0); Immature Granulocytes # (auto) 0.02 K/uL (0.00-0.02); Immature Granulocytes % (auto) 0.2 %; Lymphocytes # (auto) 1.12 K/uL (1.2-3.4); Lymphocytes % (auto) 11.3 %; Mean Corpuscular Hgb Conc 36.6 g/dL (32-36); Mean Corpuscular Volume 80.8 fL (80-100); Mean Platelet Volume 9.8 fL (7.4-10.4); Monocytes # (auto) 0.28 K/uL (0.11-0.59); Monocytes % (auto) 2.8 %; Neutrophils # (auto) 8.48 K/uL (1.4-6.5); Neutrophils % (auto) 85.7 %; Platelet Count 270 K/uL (130-400); RDW Coefficient of Variation 12.9 % (11.5-14.5); RDW Standard Deviation 38.1 fL (36.4-46.3); Red Blood Count 5.11 M/uL (4.7-6.1)
[2018-09-25 07:00] LABS: BUN Creatinine Ratio 15.7 (10-20); Calcium 8.6 mg/dl (8.5-10.1); Creatinine Clr Calc Pharmacy 114.5 ml/min; Est GFR (African American) 133.3; Potassium 4.1 mmol/L (3.5-5.1)
--- NOTE | 2018-09-25 07:25 | Anesthesiology Progress Note ---
Date of Service September 25, 2018 Anesthesia Post Procedure Vital Signs Vital Signs: Temp Pulse Pulse Pulse Pulse Resp BP 09/25/18 03:53 36.7 C 61 18 09/25/18 01:34 09/25/18 00:25 36.8 C 82 16 09/24/18 23:18 36.2 C L 89 20 09/24/18 22:28 36.4 C L 88 16 09/24/18 22:00 36.6 C 67 16 09/24/18 21:30 36.6 C 66 15 09/24/18 21:20 81 18 09/24/18 21:10 36.4 C L 88 16 09/24/18 21:00 88 16 09/24/18 20:50 82 16 09/24/18 20:44 36.0 C L 92 H 12 09/24/18 17:51 73 19 09/24/18 17:09 60 13 09/24/18 15:38 09/24/18 15:12 36.5 C 66 16 162/93 H BP Pulse Ox Pulse Ox 09/25/18 03:53 104/62 97 09/25/18 01:34 97 09/25/18 00:25 113/71 97 09/24/18 23:18 115/68 96 09/24/18 22:28 111/66 96 09/24/18 22:00 118/74 96 09/24/18 21:30 133/70 93 09/24/18 21:20 136/76 96 09/24/18 21:10 133/73 96 09/24/18 21:00 136/78 98 09/24/18 20:50 125/72 100 09/24/18 20:44 128/69 99 09/24/18 17:51 115/75 100 09/24/18 17:09 133/74 100 09/24/18 15:38 100 09/24/18 15:12 99 Pain Intensity Abdomen: Pain Intensity: 3 Transfer of Care Handoff Completed per policy Notes Mental Status: alert / awake / arousable and participated in evaluation Patient Amnestic to Procedure: Yes Nausea / Vomiting: adequately controlled Pain: adequately controlled Airway Patency, RR, SpO2: stable & adequate BP & HR: stable & adequate Hydration State: stable & adequate Anesthetic Complications: see Notes below and Pt Satisfied with anesthetic care Notes: Patient had uvular swelling noted when he tried to eat ice cream last night post-procedure. See previous notes for full details. I saw this patient around 0630 today and he stated he had a restful night. No respiratory problems. Mild sore throat. Uvula appeared less swollen than last night. He has been using ice chips for swelling and pain relief. Again he was instructed on what to look for moving forward. Any concerns for bleeding/infection/ulceration/difficulty swallowing should prompt him to go to ER or his primary care physician based upon severity. He demonstrated understanding. I also spoke with the general surgery PA working today for [facility] and explained the situation to her as she will be seeing him later this morning for discharge. All questions answered and patient appears to be doing much better.
[2018-09-25 08:11] VITALS: BP 105/67; PULSE 75; TEMP 97.7; O2SAT 98
[2018-09-25] MEDS ORDERED: FEXOFENADINE HCL 180 MG TAB PO SCH (09:00)
--- NOTE | 2018-09-25 12:16 | Surgery Progress Note ---
Date of Service September 25, 2018 Assessment & Plan (1) Acute appendicitis: POD # 1 s/p laparoscopic appendectomy - vitals stable, afebrile - post op pain minimal, controlled - no n/v - ambulating without difficulty Plan: Discharge home after lunch PO Percocet prn pain, avoid any further IV pain medication discharge instructions reviewed f/u surgical office in 1-[address] Mae was present during my examination and agrees with above (2) Uvular swelling: Per anesthesia likely from intubation vs placement of OG tube. Able to tolerate diet this morning no throat swelling stable Soft diet for next few days to week and advance as tolerated advised to report to emergency room if increasing pain, swelling, difficulty breathing or swallowing. Patient and understood f/u surgical office 1-2 weeks Subjective Feeling better preoperative pain resolved post op pain mild, controlled had morphine this morning tolerated clear liquids ambulating and urinating without difficulty Physical Exam Constitutional: WD/WN, vitals as above Respiratory: normal respiratory effort; no respiratory distress Gastrointestinal (Abdomen): Inspection/Auscultation: abdomen normal to inspection; abdomen not distended Percussion/Palpation: + abdomen tender (at incision sites) and abdomen soft; no guarding and abdomen not rigid Skin: no rashes, warm and dry + incision (clean/dry/intact with dressings) Psychiatric: A+Ox3, euthymic affect Results & Data Vital Signs (Past 12 Hours) Vital Signs Temp Pulse Resp BP Pulse Ox Pulse Ox 09/25/18 07:35 36.5 C 75 16 105/67 98 09/25/18 03:53 36.7 C 61 18 104/62 97 09/25/18 01:34 97 09/25/18 00:25 36.8 C 82 16 113/71 97 Laboratory Results 09/25/18 09/25/18 09/24/18 Range/Units 05:24 05:24 16:31 WBC 9.90 (4.8-10.8) K/uL RBC 5.11 (4.7-6.1) M/uL Hgb 15.1 (14.0-18.0) g/dL Hct 41.3 L (42-52) % MCV 80.8 (80-100) fL MCH 29.5 (25-34) pg MCHC 36.6 H (32-36) g/dL RDW Std Deviation 38.1 (36.4-46.3) fL RDW Coeff of Dahlia 12.9 (11.5-14.5) % Plt Count 270 (130-400) K/uL MPV 9.8 (7.4-10.4) fL Immature Gran % (Auto) 0.2 % Neut % (Auto) 85.7 % Lymph % (Auto) 11.3 % [place] % (Auto) 2.8 % Eos % (Auto) 0.0 % Baso % (Auto) 0.0 % Immature Gran # (Auto) 0.02 (0.00-0.02) K/uL Neut # (Auto) 8.48 H (1.4-6.5) K/uL Lymph # (Auto) 1.12 L (1.2-3.4) K/uL [place] # (Auto) 0.28 (0.11-0.59) K/uL Eos # (Auto) 0.00 (0-0.5) K/uL Baso # (Auto) 0.00 (0-0.2) K/uL Sodium 138 (136-145) mmol/L Potassium 4.1 (3.5-5.1) mmol/L Chloride 105 (98-107) mmol/L Carbon Dioxide 28 (21-32) mmol/L Anion Gap 5.0 (3-11) BUN 14 (7-18) mg/dl Creatinine 0.87 (0.6-1.4) mg/dl Est Cr Clr Drug Dosing 114.5 ml/min Est GFR ( Amer) 133.3 Est GFR (Non-Af Amer) 115.0 BUN/Creatinine Ratio 15.7 (10-20) Glucose 118 H (70-99) mg/dl Calcium 8.6 (8.5-10.1) mg/dl Total Bilirubin (0.2-1) mg/dl AST (15-37) U/L ALT (12-78) U/L Alkaline Phosphatase (45-117) U/L Total Protein (6.4-8.2) gm/dl Albumin (3.4-5.0) gm/dl Globulin (2.5-4.0) gm/dl Albumin/Globulin Ratio (0.9-2) Lipase (73-393) U/L Urine Color Yellow Urine Appearance Turbid A (Clear) Urine pH 8.5 H (4.5-7.5) Ur Specific [place] 1.027 (1.000-1.030) Urine Protein Negative (Negative) Urine Glucose (UA) Negative (Negative) Urine Ketones 4+ H (Negative) Urine Blood Negative (Negative) Urine Nitrite Negative (Negative) Urine Bilirubin Negative (Negative) Urine Urobilinogen Negative (Negative) Ur Leukocyte Esterase Negative (Negative) Urine WBC (Auto) 0 (0-5) /hpf Urine RBC (Auto) 0-4 (0-4) /hpf U Hyaline Cast (Auto) 1-5 (0-5) /lpf U Epithel Cells (Auto) 0-5 (0-5) /lpf Urine Bacteria (Auto) Negative (Negative) 09/24/18 09/24/18 Range/Units 15:23 15:23 WBC 11.46 H (4.8-10.8) K/uL RBC 5.80 (4.7-6.1) M/uL Hgb 17.4 (14.0-18.0) g/dL Hct 46.4 (42-52) % MCV 80.0 (80-100) fL MCH 30.0 (25-34) pg MCHC 37.5 H (32-36) g/dL RDW Std Deviation 37.7 (36.4-46.3) fL RDW Coeff of Dahlia 13.0 (11.5-14.5) % Plt Count 297 (130-400) K/uL MPV 9.5 (7.4-10.4) fL Immature Gran % (Auto) 0.2 % Neut % (Auto) 76.2 % Lymph % (Auto) 18.9 % [place] % (Auto) 3.9 % Eos % (Auto) 0.5 % Baso % (Auto) 0.3 % Immature Gran # (Auto) 0.02 (0.00-0.02) K/uL Neut # (Auto) 8.73 H (1.4-6.5) K/uL Lymph # (Auto) 2.17 (1.2-3.4) K/uL [place] # (Auto) 0.45 (0.11-0.59) K/uL Eos # (Auto) 0.06 (0-0.5) K/uL Baso # (Auto) 0.03 (0-0.2) K/uL Sodium 139 (136-145) mmol/L Potassium 3.6 (3.5-5.1) mmol/L Chloride 101 (98-107) mmol/L Carbon Dioxide 29 (21-32) mmol/L Anion Gap 8.0 (3-11) BUN 16 (7-18) mg/dl Creatinine 0.88 (0.6-1.4) mg/dl Est Cr Clr Drug Dosing 117.7 ml/min Est GFR ( Amer) 132.7 Est GFR (Non-Af Amer) 114.5 BUN/Creatinine Ratio 18.5 (10-20) Glucose 99 (70-99) mg/dl Calcium 9.5 (8.5-10.1) mg/dl Total Bilirubin 0.7 (0.2-1) mg/dl AST 28 (15-37) U/L ALT 52 (12-78) U/L Alkaline Phosphatase 71 (45-117) U/L Total Protein 8.0 (6.4-8.2) gm/dl Albumin 4.4 (3.4-5.0) gm/dl Globulin 3.6 (2.5-4.0) gm/dl Albumin/Globulin Ratio 1.2 (0.9-2) Lipase 110 (73-393) U/L Urine Color Urine Appearance (Clear) Urine pH (4.5-7.5) Ur Specific [place] (1.000-1.030) Urine Protein (Negative) Urine Glucose (UA) (Negative) Urine Ketones (Negative) Urine Blood (Negative) Urine Nitrite (Negative) Urine Bilirubin (Negative) Urine Urobilinogen (Negative) Ur Leukocyte Esterase (Negative) Urine WBC (Auto) (0-5) /hpf Urine RBC (Auto) (0-4) /hpf U Hyaline Cast (Auto) (0-5) /lpf U Epithel Cells (Auto) (0-5) /lpf Urine Bacteria (Auto) (Negative) (1) Acute appendicitis Appendicitis perforation presence: without perforation
--- NOTE | 2018-09-26 12:24 | Discharge Summary ---
Date of Service September 26, 2018 Admission HPI Per Admitting Provider 33 yr old man who presented to ER with abdominal pain of about 5 hours duration. Started on left mid abdomen and then radiated over to right side. [place] as though a fist was squeezing, 8-9 /10 in intensity, not worse with movement, associated with nausea and vomiting. No fever or chills. No similar episodes. Slightly better with the pain meds. Did not radiate to back. CT scan showed appendicitis. Principal Diagnosis Acute appendicitis Discharge Data Allergies Allergy/AdvReac Type Severity Reaction Status Date / Time Penicillins Allergy Unknown UNKNOWN Unverified 09/24/18 16:12 Procedures Performed Operation Date: 09/24/18 18:00 Actual Procedures p Laparoscopic Appendectomy(Not Applicable) - Carolina La MD Ordered Studies 09/24/18 15:23 CT abd pelvis wo con Stat Hospital Course (1) Acute appendicitis: Patient was taken to operating room for laparoscopic appendectomy by Dr. Carolina La on 09/24/2018. Patient found to have acute appendicitis without perforation or abscess. Patient did have some adhesions to the right lateral abdominal wall which in taking them down had some bleeding which was controlled with clips. Patient tolerated procedure well without difficulty. Transferred to recovery room and then to medical/surgical floor for post operative care. Started on clear liquids, PO Percocet prn pain with breakthrough Morhpine, IV Zofran, activity as tolerated, SCDs for DVT prophylaxis. POD # 1 vital stable, afebrile, pain controlled with IV meds, no n/v, tolerated clears. Throat pain and swelling improved, no difficulty breathing. Diet was advanced to soft diet and advised oral pain medication as needed, no further IV pain meds. Patient was discharged home on POD # 1 in stable condition. (2) Uvular swelling: Per anesthesia likely from intubation vs placement of OG tube. Able to tolerate diet POD # 1 Soft diet for next few days to week and advance as tolerated advised to report to emergency room if increasing pain, swelling, difficulty breathing or swallowing. Patient and understood f/u surgical office 1-2 weeks Total Time Total Time Spent Total Time Spent (In Minutes): 15 minutes Total Time Includes: Examination of the Patient, Discharge Planning and Medication Reconciliation Discharge Plan Discharge Items Patient Disposition: Home - Self-Care Reason For Visit: ACUTE APPENDICITIS Discharge Diagnosis: Same Discharge Goals: Decrease discomfort and Improve function Activity: Per 'Additional Instructions' section Non-emergency contact: Surgeon Call non-emergency contact if: your symptoms worsen, your pain is not controlled, your pain is worsening, your pain is unusual for you, your pain is concerning for you, you have a fever, your temperature is above 101, your wound has increased redness, your wound has increased drainage and your wound pain has increased Follow-up/Referrals: Priscila Bellamy CRNP [Primary Care Provider] - Diet: See below Diet Comment: Soft diet for next few days and then slowly advance as tolerated Addtl Provider Instructions: No heavy lifting over 20 pounds for 2-3 weeks No strenuous activity until cleared by surgeon No submerging incisions underwater for 2 weeks (no bathing, swimming, or hot tubs) No driving while taking narcotic pain medication or until you are pain free You may shower, gently allow water to run over incisions and pat dry. Leave steri strips on incisions for 7 days and then remove. Walking and light activity is encouraged daily to prevent blood clots from forming You will be given prescription for narcotic pain medication (Percocet) as needed for moderate to severe pain. Take as directed. This medication may cause constipation or drowsiness. You may take extra strength Tylenol (650 mg) or Ibuprofen (600 mg) as needed for mild pain. Take Ibuprofen with food. To avoid constipation: Drink plenty of fluids daily, avoid foods that constipate, daily walking. May take OTC stool softener (Colace) daily or twice a day as needed while taking pain medication. If those measures do not work, yo u may take Miralax or Milk of Magnesia. Follow-up in surgical office in 1-2 weeks, please call office at [phone] to make an appointment Prescriptions: New oxycodone-acetaminophen 5-325 mg tablet 1 tab PO Q4H PRN (Reason: pain) Qty: 18 RF: 0 Continued fexofenadine 180 mg Tablet 180 mg PO DAILY RF: 0 Stand-Alone Forms: Call Back Authorization, [facility], Opio[facility] Pain [facility], Work/School Release (Inpt) Discharge Orders: Discharge Order (Routine); Ordered 09/25/18 Ordered By: Savannah Razo Admission Data Admit Date/Time: 09/24/18 20:09 Attending Provider: Carolina La Admit Provider: Carolina La Primary Care Provider: Priscila Bellamy Service: Surgical Services Other Interventions: Discharge Summary Assessment (RN) Last Done: 09/25/18 11:23 Pending Studies at Discharge: Yes (appendix pathology, will be reviewed at follow-up visit) DC Date/Time DO NOT enter until pt leaves facility: 09/25/18 14:01
== END 2018-09-25 14:01 | disposition home or self-care (01) ==
LOC: ED 15:11 → OR 17:51 → 3W 17:51